=== PATIENT | male | born 1960 | race Caucasian/White ===

== ENCOUNTER 2017-09-23 12:55 | Emergency (ER) | payer SELFPAY ==
[2017-09-23 13:10] VITALS: BMI 27.1
[2017-09-23] MEDS ORDERED: SODIUM CHLORIDE 2,000 ML IV STA (13:28)
[2017-09-23] MEDS ORDERED: SODIUM CHLORIDE 1,000 ML IV STA (13:29)
--- NOTE | 2017-09-23 13:35 | PDOC ---
History of Present Illness - General Chief Complaint: Blood Sugar Problem Stated Complaint: UNRESPONSIVE Time Seen by Provider: 09/23/17 13:26 - History of Present Illness Initial Comments: 57 year old male with PMH of diabetes and HTN who presents to the emergency department unresponsive via EMS from home. Most of the history was provided from the sister who admits to us that he has had a heroin problem over the past few years and has been sober on and off. His Dr. Galvan is attempting to wean him off of Oxycontin. The patient was eventually arrousable and stated that he used heroin on the day prior to admission. He denies any falls, overdoses, or other drug use. States that he did not use any oxycontin on the day of admission because he ran out. The sister states the patient is currently taking 7.5 mg oxycontin twice daily. The sister reports the patient likely ran out of the pill or may have sold them for extra oro. The patients sister reports she checks on him recently but does not live with him. The patient's sister states she called yesterday around 6PM with no response from the patient. The patient' s sister reports she went to the patients home today to check up on him and found him unresponsive on the ground. The patient called 911 immediately. At presentation, the patient is only responsive to painful stimuli and does respond to questions but overall very lethargic. 09/23/17 14:50 Past History - Past Medical History Allergies/Adverse Reactions: Allergies Allergy/AdvReac Type Severity Reaction Status Date / Time No Known Allergies Allergy Unverified 02/12/17 16:32 Home Medications: Ambulatory Orders Oxycodone HCl 10 mg PO DAILY 09/23/17 Oxycodone HCl [Oxaydo] 7.5 mg PO HS PRN 09/23/17 COPD: No Diabetes: Yes HTN: Yes - Suicide/Smoking/Psychosocial Hx Smoking History: Current every day smoker Number of Cigarettes Smoked Daily: 20 Information on smoking cessation initiated: No Review of Systems - Review of Systems Able to Perform ROS?: No (lethargic) *Physical Exam - Vital Signs Last Vital Signs Temp Pulse Resp BP Pulse Ox 82 14 185/120 97 09/23/17 13:07 09/23/17 13:07 09/23/17 13:07 09/23/17 13:07 - Physical Exam General Appearance: Yes: Nourished, Disheveled, Intoxicated. No: Appropriately Dressed HEENT: positive: EOMI, JENNIE (pupils contricted but equal and reactive bilaterally), Normal ENT Inspection, Normal Voice Neck: positive: Trachea midline, Normal Thyroid, Supple. negative: Tender, Rigid Respiratory/Chest: positive: Lungs Clear, Normal Breath Sounds. negative: Chest Tender, Respiratory Distress Cardiovascular: positive: Regular Rhythm, Regular Rate Gastrointestinal/Abdominal: positive: Normal Bowel Sounds, Flat, Soft. negative : Tender Musculoskeletal: negative: Normal Inspection (Diffusely weak and lethargic but moving all extremities equally.) Extremity: positive: Normal Inspection, Normal Range of Motion (Weak but seems to have no restricted movements) Integumentary: positive: Normal Color, Dry, Warm, Erythema (erythema and skin bubbling consistent with a superficial burn on the upper left part of his chest in two striped patterns.) Neurologic: positive: Other (No apparent focal deficit in motor or sensory function). negative: Fully Oriented (oriented to person but not place or time) , Alert (somnolent) ED Treatment Course - LABORATORY CBC & Chemistry Diagram: 09/23/17 13:50 09/23/17 13:50 Medical Decision Making - Medical Decision Making 09/23/17 15:00 57 year old previous heroin user found unresponsive, hypertensive, and with two burn mcnair across the top left portionof hist chest. No head lesions make fall and head trauma unlikely. This is more likely an intoxication episode. Given he was so difficult to achieve access on and he was hypertensive possibly requiring anti-hypertensives IV, we placed a right sided subclavian line after many superficial venous attempts including an external jugular line. The subclavian was confirmed and sepsis lab order set was sent. Patient was given two doses of Narcan 0.4 and 2[address] was performed to rule out intracranial pathology as patient was noted to have some possible left sided deficits. CT head returned positve for lare basal ganglia bleed with extensive edema and midline shift. Patient's neuro exam seemed to be acutely worsening while setting up transfer to [facility]. Dr. Ricks was spoken to about patient and HTN goals of between 140-160 were discussed. Neurosurgen from [facility] was spoken to about transfer and Mannitol was not recommended currently. Patient pressures reduced from 170s-180s systolic to 140s and is stabell overall for transfer. Sister was OK with plan. *DC/Admit/Observation/Transfer Diagnosis at time of Disposition: Intracranial hemorrhage - Discharge Dispostion Disposition: TRANSFER ACUTE CARE/OTHER HOSP Condition at time of disposition: Critical - Referrals - Patient Instructions - Post Discharge Activity - Transfer to Acute Care Facility Receiving Facility: [facility].
[2017-09-23 14:06] LABS: METHEMOGLOBIN 1.4 % (0.4-1.5)
[2017-09-23 14:08] LABS: MCH 28.8 pg (25.7-33.7); MEAN CELL VOLUME 87.4 fl (80-96); MEAN PLT VOLUME 9.1 fl (7.5-11.1); PLATELET COUNT 281 K/MM3 (134-434); RDW 14.2 % (11.9-15.9)
[2017-09-23 14:38] LABS: ALBUMIN 3.7 g/dl (3.4-5.0); ANION GAP 15 (8-16); BILIRUBIN,TOTAL 0.9 mg/dL (0.2-1.0); CALCIUM 9.3 mg/dL (8.5-10.1); CO2 21 mmol/L (21-32); CREATININE 0.9 mg/dL (0.7-1.3); SGOT/AST 70 U/L (15-37); SGPT/ALT 29 U/L (12-78)
[2017-09-23 14:41] LABS: ALK PHOS 73 U/L (45-117); CPK 430 IU/L (39-308); TROPONIN I < 0.02 ng/ml (0.00-0.05)
[2017-09-23 14:43] LABS: GLUCOSE,RANDOM 376 mg/dL (74-106)
[2017-09-23 15:14] LABS: TOTAL CELLS COUNTED 100
[2017-09-23] MEDS ORDERED: NALOXONE HCL 0.4 MG/ML VIAL IVPUSH ONE (15:14)
[2017-09-23] MEDS ORDERED: NALOXONE HCL 0.4 MG/ML VIAL ONE ×3 (15:22→17:18)
--- NOTE | 2017-09-23 15:47 | PDOC ---
History of Present Illness - General History Source: Family (Sister) Exam Limitations: Unresponsive - History of Present Illness Initial Comments: 09/23/17 15:48 The patient is a 57 year old male with a significant PMH of diabetes and HTN who presents to the emergency department unresponsive via EMS. As per the patients sister, his PMD is Dr. Casey at [facility] and is trying to wean the patient off oxycontin. The sister states the patient is currently taking 7.5 mg oxycontin twice daily. The sister reports the patient likely ran out of the pill or may have sold them for extra oro. The patients sister reports she checks on him recently but does not live with him. The patient's sister suspects the patient may have used heroin yesterday. The patient's sister states she called yesterday around 6PM with no response from the patient. The patient's sister reports she went to the patients home today to check up on him and found him unresponsive on the ground. The patient called 911 immediately. At presentation, the patient is only responsive to painful stimuli. Seen in concert with Dr. Aldridge Allergies: NKA Past surgical history: None reported. Social history: Heroin use. No reported cigarette or alcohol use. <Rosalba Mendoza - Last Filed: 09/23/17 18:58> <Aron Landry - Last Filed: 09/30/17 16:50> - General Chief Complaint: Blood Sugar Problem Stated Complaint: UNRESPONSIVE Time Seen by Provider: 09/23/17 13:26 Past History <Rosalba Mendoza - Last Filed: 09/23/17 18:58> - Past Medical History COPD: No Diabetes: Yes HTN: Yes - Suicide/Smoking/Psychosocial Hx Smoking History: Current every day smoker Number of Cigarettes Smoked Daily: 20 Information on smoking cessation initiated: No <Aron Landry - Last Filed: 09/30/17 16:50> - Past Medical History Allergies/Adverse Reactions: Allergies Allergy/AdvReac Type Severity Reaction Status Date / Time No Known Allergies Allergy Unverified 02/12/17 16:32 Home Medications: Ambulatory Orders Oxycodone HCl 10 mg PO DAILY 09/23/17 Oxycodone HCl [Oxaydo] 7.5 mg PO HS PRN 09/23/17 Review of Systems - Review of Systems Able to Perform ROS?: No (Patient is unresponsive. ) <Rosalba Mendoza - Last Filed: 09/23/17 18:58> *Physical Exam - Vital Signs Last Vital Signs Temp Pulse Resp BP Pulse Ox 99.6 F 115 H 16 176/91 95 09/23/17 15:20 09/23/17 15:20 09/23/17 15:20 09/23/17 15:20 09/23/17 15:20 - Physical Exam Comments: 09/23/17 15:49 GENERAL: (+) Patient only responsive to loud stimuli. HEAD: No signs of trauma EYES: PERRLA, EOMI, sclera anicteric, conjunctiva clear ENT: Auricles normal inspection, hearing grossly normal, nares patent, oropharynx clear without exudates. Moist mucosa NECK: (+) JVD. Normal ROM, supple, no lymphadenopathy, or masses LUNGS: Breath sounds equal, clear to auscultation bilaterally. No wheezes, and no crackles HEART: Regular rate and rhythm, normal S1 and S2, no murmurs, rubs or gallops ABDOMEN: Soft, nontender, normoactive bowel sounds. No guarding, no rebound. No masses EXTREMITIES: Normal range of motion, no edema. No clubbing or cyanosis. No cords, erythema, or tenderness NEUROLOGICAL: Cranial nerves II through XII grossly intact. SKIN: (+) 2 large burn lines across the left chest area. Warm, Dry, normal turgor. <Rosalba Mendoza - Last Filed: 09/23/17 18:58> - Vital Signs Last Vital Signs Temp Pulse Resp BP Pulse Ox 99.6 F 115 H 16 176/91 95 09/23/17 15:20 09/23/17 15:20 09/23/17 15:20 09/23/17 15:20 09/23/17 15:20 <Aron Landry - Last Filed: 09/30/17 16:50> Heart Score/ECG Review #1 09/23/17 17:33 EKG performed at [15:16] demonstrates rate of [84], rhythm of [Normal sinus rhythm]. #2 09/23/17 18:59 EKG performed at [18:12] demonstrates rate of [81], rhythm of [Normal sinus rhythm, Possible left atrial enlargement, Borderline ECG]. <Rosalba Mendoza - Last Filed: 09/23/17 18:58> ED Treatment Course - LABORATORY CBC & Chemistry Diagram: 09/23/17 13:50 09/23/17 13:50 - ADDITIONAL ORDERS Additional order review: Laboratory Results 09/23/17 09/23/17 09/23/17 14:00 13:50 13:50 Carboxyhemoglobin 1.1 Methemoglobin 1.4 Sodium 138 Potassium 4.0 Chloride 102 Carbon Dioxide 21 Anion Gap 15 BUN 19 H Creatinine 0.9 Creat Clearance w eGFR > 60 Random Glucose 376 H* Lactic Acid Calcium 9.3 Total Bilirubin 0.9 AST 70 H ALT 29 Alkaline Phosphatase 73 Creatine Kinase 430 H Creatine Kinase Index 0.6 CK-MB (CK-2) 2.715 Troponin I < 0.02 B-Natriuretic Peptide 367.11 H Total Protein 8.0 Albumin 3.7 09/23/17 13:29 Carboxyhemoglobin Methemoglobin Sodium Potassium Chloride Carbon Dioxide Anion Gap BUN Creatinine Creat Clearance w eGFR Random Glucose Lactic Acid 2.1 H* Calcium Total Bilirubin AST ALT Alkaline Phosphatase Creatine Kinase Creatine Kinase Index CK-MB (CK-2) Troponin I B-Natriuretic Peptide Total Protein Albumin 09/23/17 13:50 RBC 5.62 H MCV 87.4 MCHC 33.0 RDW 14.2 MPV 9.1 Neutrophils % No Result Required. Lymphocytes % No Result Required. - Medications Given in the ED: ED Medications Discontinued Medications Generic Name Dose Route Start Last Admin Trade Name Freq PRN Reason Stop Dose Admin Sodium Chloride 2,000 mls @ 2,000 mls/hr 09/23/17 13:28 09/23/17 14:47 Normal Saline - IV 09/23/17 14:27 2,000 mls/hr .Q1H STA Administration Sodium Chloride 1,000 mls @ 1,000 mls/hr 09/23/17 13:29 09/23/17 13:45 Normal Saline - IV 09/23/17 14:28 1,000 mls/hr ASDIR STA Administration Naloxone HCl 0.4 mg 09/23/17 15:14 09/23/17 15:21 Narcan - IVPUSH 09/23/17 15:15 0.4 mg ONCE ONE Administration <Rosalba Mendoza - Last Filed: 09/23/17 18:58> - LABORATORY CBC & Chemistry Diagram: 09/23/17 13:50 09/23/17 13:50 - ADDITIONAL ORDERS Additional order review: Laboratory Results 09/23/17 09/23/17 09/23/17 14:00 13:50 13:50 Carboxyhemoglobin 1.1 Methemoglobin 1.4 Sodium 138 Potassium 4.0 Chloride 102 Carbon Dioxide 21 Anion Gap 15 BUN 19 H Creatinine 0.9 Creat Clearance w eGFR > 60 Random Glucose 376 H* Lactic Acid Calcium 9.3 Total Bilirubin 0.9 AST 70 H ALT 29 Alkaline Phosphatase 73 Creatine Kinase 430 H Creatine Kinase Index 0.6 CK-MB (CK-2) 2.715 Troponin I < 0.02 B-Natriuretic Peptide 367.11 H Total Protein 8.0 Albumin 3.7 09/23/17 13:29 Carboxyhemoglobin Methemoglobin Sodium Potassium Chloride Carbon Dioxide Anion Gap BUN Creatinine Creat Clearance w eGFR Random Glucose Lactic Acid 2.1 H* Calcium Total Bilirubin AST ALT Alkaline Phosphatase Creatine Kinase Creatine Kinase Index CK-MB (CK-2) Troponin I B-Natriuretic Peptide Total Protein Albumin 09/23/17 13:50 RBC 5.62 H MCV 87.4 MCHC 33.0 RDW 14.2 MPV 9.1 Neutrophils % No Result Required. Lymphocytes % No Result Required. - RADIOLOGY Radiology Studies Ordered: Category Date Time Status CXRPORT [CHEST X-RAY PORTABLE*] [RAD] Stat Radiology 09/23/17 14:37 Taken - Medications Given in the ED: ED Medications Discontinued Medications Generic Name Dose Route Start Last Admin Trade Name Freq PRN Reason Stop Dose Admin Sodium Chloride 2,000 mls @ 2,000 mls/hr 09/23/17 13:28 09/23/17 14:47 Normal Saline - IV 09/23/17 14:27 2,000 mls/hr .Q1H STA Administration Sodium Chloride 1,000 mls @ 1,000 mls/hr 09/23/17 13:29 09/23/17 13:45 Normal Saline - IV 09/23/17 14:28 1,000 mls/hr ASDIR STA Administration Naloxone HCl 0.4 mg 09/23/17 15:14 09/23/17 15:21 Narcan - IVPUSH 09/23/17 15:15 0.4 mg ONCE ONE Administration <Aron Landry - Last Filed: 09/30/17 16:50> Medical Decision Making - Medical Decision Making 09/23/17 15:[address] an external jugular line twice, the line initially worked but stopped. 09/23/17 18:19 IMAGING Type: Head CT w/o contrast Reported by: Dr. Retana Reviewed by: Dr. Landry Impression: Large right basal ganglia bleed with extensive edema and midline shift. Type: Chest XR Reported by: Dr. Retana Reviewed by: Dr. Landry Impression: No acute infiltrates or pleural effusions are identified. 09/23/17 18:31 18:[address] Ricks, no response 18:[address] Ricks a second time, no response 18:30 pm Will transfer to [facility] <Rosalba Mendoza - Last Filed: 09/23/17 18:58> *DC/Admit/Observation/Transfer - Attestations Scribe Attestion: 09/23/17 15:50 Documentation prepared by Rosalba Mendoza, acting as certified ophthalmic medical technician for Aron Landry MD. <Rosalba Mendoza - Last Filed: 09/23/17 18:58> - Transfer to Acute Care Facility Receiving Facility: [facility]. - Attestations Physician Attestion: 09/23/17 15:46 I, Dr. Aron Landry, attest that this document has been prepared under my direction and personally reviewed by me in its entirety. I further attest, that it accurately reflects all work, treatment, procedures and medical decision -making performed by me. <Aron Landry - Last Filed: 09/30/17 16:50> Diagnosis at time of Disposition: Intracranial hemorrhage - Discharge Dispostion Disposition: TRANSFER ACUTE CARE/OTHER HOSP Condition at time of disposition: Critical
[2017-09-23 16:01] LABS: URINE APPEARANCE SLCLOUDY; URINE BILIRUBIN NEGATIVE (NEGATIVE); URINE BLOOD 2+ (NEGATIVE); URINE COLOR YELLOW; URINE GLUCOSE (UA) 3+ (NEGATIVE); URINE KETONE 2+ (NEGATIVE); URINE LEUK ESTERASE NEGATIVE (NEGATIVE); URINE NITRITE NEGATIVE (NEGATIVE); URINE UROBILINOGEN NEGATIVE mg/dL (0.2-1.0)
[2017-09-23] MEDS ORDERED: VANCOMYCIN 2,000 MG in DEXTROSE 5%-WATER - 250 ML IVPB ONE (16:04)
[2017-09-23] MEDS ORDERED: NALOXONE HCL 0.4 MG/ML VIAL IVPUSH PRN (16:04)
[2017-09-23] MEDS ORDERED: PIPERACILLIN/TAZOB 3.375 GM/50 ML PRE-DOCKED IVPB ONE (16:06)
[2017-09-23] MEDS ORDERED: PIPERACILLIN/TAZOB 3.375 GM 3.375 GM/50 ML BAG IVPB ONE (16:26)
--- NOTE | 2017-09-23 16:28 | EKG ---
Test Reason : Blood Pressure : / mmHG Vent. Rate : 084 BPM Atrial Rate : 084 BPM P-R Int : 168 ms QRS Dur : 094 ms QT Int : 380 ms P-R-T Axes : 052 068 066 degrees QTc Int : 449 ms POOR DATA QUALITY, INTERPRETATION MAY BE ADVERSELY AFFECTED NORMAL SINUS RHYTHM NORMAL ECG NO PREVIOUS ECGS AVAILABLE Confirmed by KARY ACOSTA MD ([id number]) on 09/23/2017 4:27:59 PM Referred By: Confirmed By:KARY ACOSTA MD
[2017-09-23] MEDS ORDERED: VANCOMYCIN 2,000 MG in DEXTROSE 5%-WATER - 500 ML IVPB ONE (17:03)
[2017-09-23 17:08] LABS: URINE PROTEIN 2+ (NEGATIVE)
[2017-09-23 17:11] LABS: URINE HYALINE CAST 1 /lpf; URINE MUCUS RARE; URINE RBC 4 /hpf (0-3); URINE WBC 2 /hpf (3-5)
[2017-09-23 17:36] LABS: INR 1.04 (0.82-1.09); PROTHROMBIN TIME (PATIENT) 11.8 SEC (9.98-11.88)
[2017-09-23 17:39] LABS: ACTIVATED PTT 20.6 SECONDS (26.9-34.4)
[2017-09-23] MEDS: METOPROLOL TARTRATE 5 MG/5 ML VIAL IVPUSH ONE ×2 (18:12→18:20)
[2017-09-23] MEDS ORDERED: NICARDIPINE 25 MG in DEXTROSE 5%-WATER - 240 ML IVPB SCH ×3 (18:15→18:19)
[2017-09-23] MEDS ORDERED: METOPROLOL TARTRATE 5 MG/5 ML VIAL ONE ×2 (18:17→18:30)
[2017-09-23] MEDS ORDERED: METOPROLOL TARTRATE 5 MG/5 ML VIAL IVPUSH ONE (18:29)
[2017-09-23 18:59] VITALS: TEMP 98.4
[2017-09-23 19:15] VITALS: BP 150/110; PULSE 112
[2017-09-23 19:18] LABS: URINE MARIJUANA THC NEGATIVE ng/ml (CUTOFF=50)
[2017-09-23] MEDS ORDERED: ACETAMINOPHEN 1000 MG/100 ML VIAL (NON FORMULARY) IVPB ONE (19:20)
[2017-09-23] MEDS ORDERED: ACETAMINOPHEN INJECTION 100 ML IVPB ONE (19:20)
[2017-09-23] MEDS ORDERED: CEFTRIAXONE 2 GM/100 ML BAG IVPB ONE (19:22)
[2017-09-23] MEDS ORDERED: cefTRIAXone 2 GM/100 ML BAG (PRE-DOCKED) IVPB ONE (19:22)
[2017-09-23 20:20] LABS: URINE LEUK ESTERASE Negative (NEGATIVE)
--- NOTE | 2017-09-25 08:48 | PDOC ---
Patient Follow-up (Call Back) - Post ED Follow - Up Condition at time of discharge: Critical Disposition at time of original discharge: TRANSFER ACUTE CARE/OTHER HOSP Reason for Call Back: Abnwl. Microbiology (one bottle gram +cocci in clusters. pt at [facility], called and notified Carlos Serrano RN)
--- NOTE | 2017-09-30 16:30 | EKG ---
Test Reason : Blood Pressure : / mmHG Vent. Rate : 081 BPM Atrial Rate : 081 BPM P-R Int : 166 ms QRS Dur : 098 ms QT Int : 388 ms P-R-T Axes : 068 056 066 degrees QTc Int : 450 ms NORMAL SINUS RHYTHM POSSIBLE LEFT ATRIAL ENLARGEMENT BORDERLINE ECG WHEN COMPARED WITH ECG OF 23-SEP-2017 15:16, NO SIGNIFICANT CHANGE WAS FOUND Confirmed by KARY ACOSTA MD ([id number]) on 09/30/2017 4:30:27 PM Referred By: Confirmed By:KARY ACOSTA MD
== END 2017-09-23 19:30 | disposition short-term general hospital (02) ==
LOC: JER 12:55
PROC: 3E03329 Introduction of Other Anti-infective into Peripheral Vein, Percutaneous Approach (ICD-10-PCS; principal; 2017-09-23)
PROC: 3E0337Z Introduction of Electrolytic and Water Balance Substance into Peripheral Vein, Percutaneous Approach (ICD-10-PCS; 2017-09-23)
PROC: 3E033NZ Introduction of Analgesics, Hypnotics, Sedatives into Peripheral Vein, Percutaneous Approach (ICD-10-PCS; 2017-09-23)
PROC: 3E033GC Introduction of Other Therapeutic Substance into Peripheral Vein, Percutaneous Approach (ICD-10-PCS; 2017-09-23)
DX: R55 Syncope and collapse (principal); E11.9 Type 2 diabetes mellitus without complications; I10 Essential (primary) hypertension; F17.210 Nicotine dependence, cigarettes, uncomplicated
CPT/HCPCS: 36415; 70450-TC; 71010-TC; 80053; 80307; 81003; 81015; 82375; 82550; 82553; 83050; 83605; 83880; 84484; 85025; 85610; 85730; 87040; 87086; 87186; 93005; 93010; 99285-25